=== PATIENT | female | born 1990 | race Caucasian/White ===

== ENCOUNTER 2016-07-21 23:28 | Emergency (ER) | payer OTHER ==
[~2016-07-21] VITALS: Ht 157.5 cm; Wt 56.8 kg
[~2016-07-21 23:28] MED LIST: AMOXICILLIN/CLA1 TA1 PO; CEFTIN 250250 MG/TAB PO; CHEW-IRON27 MG PO; CLEOCIN HCL300 MG PO; FLEXERIL 1010 MG/TAB PO; LORTAB 5/500 501 TAB PO; MOTRIN 800800 MG/TAB PO; MULTIPLE VITAMI1 CAP PO; NAPROSYN500 MG PO; NEURONTIN100 MG/CAP PO; NEURONTIN300 MG/CAP PO; NEXIUM 40MG40 MG PO; NO HOME MEDICATIONS; NORCO 325 MG-51 TAB PO; OMEGA-3 FISH1000 MG PO; PERCOCET 325 MG1 TA2 PO; PERCR 7.5 PO; PHENERGAN 25 TA25 MG PO; PREDNISONE20 MG PO; PRENATAL1 TA7 PO; RELACORE; RELAFEN 50500 MG/TAB PO; RYZOLT100 MG PO; ULTRAM 50MG TAB50 MG PO; VALIUM 2MG T2 MG/TAB PO; VITAMIN B12100 MCG PO; [UNRECOGNIZED DRUG - OTHER]; [UNRECOGNIZED DRUG - OTHER] IV
[2016-07-21 23:33] VITALS: TEMP 97.5
[2016-07-22 01:09] VITALS: BP 131/71; PULSE 97
== END 2016-07-22 01:09 | disposition home or self-care (01) ==
LOC: COL.ER 23:28
DX: M25.511 Pain in right shoulder (principal)
CPT/HCPCS: J1885